=== PATIENT | female | born 1980 | race Caucasian/White ===

== ENCOUNTER 2018-11-19 00:43 | Inpatient (IN) ==
[2018-11-19 01:28] LABS: Basophils % 0.3 %; Eosinophils # 0.1 K/mcL (0.0-0.6); Eosinophils % 0.9 %; Hematocrit 43.4 % (35.3-44.9); Hemoglobin 14.7 g/dL (11.5-15.4); Immature Granulocytes % 0.4 % (0-4); Lymphocytes # 3.3 K/mcL (0.6-4.6); Mean Corpuscular HGB Conc 33.9 g/dL (31.6-35.5); Mean Corpuscular Hemoglobin 31.4 pg (28.0-33.3); Mean Corpuscular Volume 92.7 fL (83.0-100.0); Mean Platelet Volume 9.2 fL (9.4-12.4); Monocytes # 0.9 K/mcL (0.0-1.3); Monocytes % 7.4 %; Neutrophils # 7.4 K/mcL (1.6-8.9); Platelet Count 248 K/mcL (140-400); Red Blood Count 4.68 M/mcL (3.82-4.97); White Blood Count 11.8 K/mcL (4.3-11.1)
[2018-11-19 01:47] LABS: Acetaminophen < 10 mcg/mL (10-20); BUN/Creatinine Ratio 25 (6-26); Blood Urea Nitrogen 24 mg/dL (6-20); Calcium 9.5 mg/dL (8.6-10.3); Carbon Dioxide 28 mEq/L (23-29); Chloride 106 mEq/L (98-107); Ethanol < 10 mg/dL (Less than 10); Glucose 97 mg/dL (70-105); Osmolality,Calculated 292 (280-300); Potassium 3.9 mEq/L (3.5-5.1); Salicylate < 2.5 mg/dL (15.0-30.0); Sodium 139 mEq/L (136-145); eGFR For African Americans > 60 (> 60); eGFR For Non-African Americans > 60 (> 60)
[2018-11-19 02:22] LABS: Bilirubin,Urine Large (Negative); Blood,Urine Negative (Negative); Clarity,Urine Clear (Clear); Color,Urine Yellow (Yellow); Glucose,Urine (UA) Normal (Normal); Ketones,Urine Negative (Negative); Leukocyte Esterase,Urine Negative (Negative); Nitrite,Urine Negative (Negative); PH,Urine 5.5 pH Units (5.0-8.0); Protein,Urine Negative (Neg-Trace); Specific Gravity,Urine > 1.030 (1.010-1.025); Urobilinogen,Urine Normal (Normal)
[2018-11-19 02:42] LABS: Amphetamine Screen,Urine Negative ng/mL (Cutoff=1000); Barbiturate Screen,Urine Negative ng/mL (Cutoff=200); Benzodiazepines Screen,Urine Positive ng/mL (Cutoff=200); Cannabinoid Screen,Urine Positive ng/mL (Cutoff = 50); Cocaine Screen,Urine Negative ng/mL (Cutoff= 300); Opiate Screen,Urine Negative ng/mL (Cutoff=300); Phencyclidine Screen,Urine Negative ng/mL (Cutoff=25)
--- NOTE | 2018-11-19 02:43 | Emergency Department Note ---
Disposition Clinical Impression: Suicidal ideation, Depression Disposition: Still a Patient Condition: Fair Referrals: NONE,PCP [Primary Care Provider] - Time of Disposition: 02:45 General Adult HPI - General Chief complaint: ED Psychiatric Symptoms Stated complaint: Really depressed, my anxiety is really bad Time Seen by Provider: 11/19/18 01:13 Source: patient Mode of arrival: ambulatory Limitations: no limitations Nursing Notes Reviewed: Yes Vital Signs Reviewed: Yes - History of Present Illness HPI Narrative: Patient presents emergency Department with chief complaint of several months of progressive problems with increasing depression and anxiety. She has been to her primary care and to her outpatient psychiatrist but she states that they are not really helping her they did add Risperdal to help her sleep at night and ingested her Lexapro little bit states is not helping and she has just progressive worsening of just not wanting to be alive. She states that she just "wants to check out". She does not have a specific plan of how to kill herself but states that she just does not want to be here anymore. She denies any visual or auditory hallucinations. She denies homicidal ideation. She denies fevers chills headache neck pain chest pain shortness of breath dizziness weakness nausea vomiting diarrhea urinary changes. She states that she does not sleep very well at all but never really has not has had a problem with insomnia for a long time. She states she has not been eating or drinking very well and does not really find anything that brings her chel in life. Patient denies any missed menstrual cycles. Patient denies any other acute concerns. Pain Scale: 6 - Related Data Home Medications Medication Instructions Recorded Confirmed Aspirin 81 mg PO DAILY 06/15/15 11/19/18 Escitalopram [Lexapro] 20 mg PO HS 06/15/15 11/19/18 Levothyroxine 100 mcg PO DAILY 07/23/15 11/19/18 Allergies Allergy/AdvReac Type Severity Reaction Status Date / Time Antihistamines - Ethanolamine AdvReac See Verified 11/19/18 01:36 Comments All systems ED: reviewed and negative except as stated. Review of Systems: As Per HPI Past Medical History - Past Medical History Medical history: Reports: GERD, GI bleed, hypertension, migraine, SVT, thyroid disease, syncope, valvular heart disease Psychiatric history: Reports: anxiety, depression, panic disorder, PTSD, prior suicide attempt - Social History Smoking Status: Former smoker Smokeless Tobacco Status: No Alcohol use: Reports: none, rarely Drug use: Reports: none Physical Exam - General Limitations: no limitations General appearance: alert, anxious - Head Head exam: atraumatic, normocephalic - Eye Eye exam: Present: normal appearance, PERRL - ENT ENT exam: normal exam, normal oropharynx - Neck Neck exam: Present: normal inspection, full ROM - Chest Chest inspection: Present: normal inspection, symmetric chest wall rise - Respiratory Respiratory exam: Present: normal lung sounds bilaterally - Cardiovascular Cardiovascular exam: Present: regular rate, normal rhythm - Abdominal Exam Abdominal exam: Present: soft, Non-Tender - Extremities Exam Extremities exam: Present: normal inspection, full ROM - Expanded Lower Extremity Exam Neurovascular/Tendon exam: Present: normal capillary refill. Absent: pulse deficit, motor deficit, sensory deficit - Back Exam Back exam: Present: normal inspection, full ROM - Neurological Exam Neurological exam: Present: alert, oriented X3, CN II-XII intact, normal gait, reflexes normal. Absent: motor sensory deficit - Psychiatric Psychiatric exam: Present: depressed, flat affect - Skin Skin exam: Present: warm, dry, intact, normal color Course Vital Signs Temperature 98.2 F 11/19/18 00:48 Pulse Rate 90 11/19/18 00:48 Respiratory Rate 14 11/19/18 00:48 Blood Pressure 117/81 11/19/18 00:48 O2 Sat by Pulse Oximetry 98 11/19/18 00:48 Temperature 98.2 F 11/19/18 00:48 Pulse Rate 90 11/19/18 00:48 Respiratory Rate 14 11/19/18 00:48 Blood Pressure 117/81 11/19/18 00:48 O2 Sat by Pulse Oximetry 98 11/19/18 00:48 Oxygen Delivery Oxygen Delivery Room Air Medical Decision Making - MDM Narrative Medical decision making narrative: Laboratory studies were ordered for medical clearance, CBC basic metabolic profile within acceptable limits urinalysis within acceptable limits test negative salicylate Tylenol ethanol levels all negative. Patient cleared for psychiatric admission/evaluation. - Lab Data Lab results reviewed: Yes I reviewed the patient's lab results. Result diagrams: 11/19/18 01:15 11/19/18 01:15 Lab Results 11/19/18 11/19/18 11/19/18 Range/Units 01:15 01:15 01:26 WBC 11.8 H (4.3-11.1) K/mcL RBC 4.68 (3.82-4.97) M/mcL Hgb 14.7 (11.5-15.4) g/dL Hct 43.4 (35.3-44.9) % MCV 92.7 (83.0-100.0) fL MCH 31.4 (28.0-33.3) pg MCHC 33.9 (31.6-35.5) g/dL RDW 12.0 (11.5-14.5) % Plt Count 248 (140-400) K/mcL MPV 9.2 L (9.4-12.4) fL Immature Gran % 0.4 (0-4) % Seg Neutrophils % 63.0 % Lymphocytes % 28.0 % Monocytes % 7.4 % Eosinophils % 0.9 % Basophils % 0.3 % Neutrophils # 7.4 (1.6-8.9) K/mcL Lymphocytes # 3.3 (0.6-4.6) K/mcL Monocytes # 0.9 (0.0-1.3) K/mcL Eosinophils # 0.1 (0.0-0.6) K/mcL Basophils # 0.0 (0.0-0.2) K/mcL Sodium 139 (136-145) mEq/L Potassium 3.9 (3.5-5.1) mEq/L Chloride 106 (98-107) mEq/L Carbon Dioxide 28 (23-29) mEq/L BUN 24 H (6-20) mg/dL Creatinine 0.96 (0.60-1.20) mg/dL Est GFR ( Amer) > 60 (> 60) Est GFR (Non-Af Amer) > 60 (> 60) BUN/Creatinine Ratio 25 (6-26) Glucose 97 (70-105) mg/dL Calculated Osmolality 292 (280-300) Calcium 9.5 (8.6-10.3) mg/dL Urine Color (Yellow) Urine Clarity (Clear) Urine pH (5.0-8.0) pH Units Ur Specific [place] (1.010-1.025) Urine Protein (Neg-Trace) mg/dL Urine Glucose (UA) (Normal) mg/dL Urine Ketones (Negative) mg/dL Urine Blood (Negative) Urine Nitrite (Negative) Urine Bilirubin (Negative) Urine Urobilinogen (Normal) mg/dL Ur Leukocyte Esterase (Negative) Urine Test (Negative) Salicylates < 2.5 L (15.0-30.0) mg/dL Acetaminophen < 10 L (10-20) mcg/mL Ur Drug Screen Interp See Below Ethyl Alcohol < 10 (Less than 10) mg/dL 11/19/18 11/19/18 Range/Units 01:28 01:28 WBC (4.3-11.1) K/mcL RBC (3.82-4.97) M/mcL Hgb (11.5-15.4) g/dL Hct (35.3-44.9) % MCV (83.0-100.0) fL MCH (28.0-33.3) pg MCHC (31.6-35.5) g/dL RDW (11.5-14.5) % Plt Count (140-400) K/mcL MPV (9.4-12.4) fL Immature Gran % (0-4) % Seg Neutrophils % % Lymphocytes % % Monocytes % % Eosinophils % % Basophils % % Neutrophils # (1.6-8.9) K/mcL Lymphocytes # (0.6-4.6) K/mcL Monocytes # (0.0-1.3) K/mcL Eosinophils # (0.0-0.6) K/mcL Basophils # (0.0-0.2) K/mcL Sodium (136-145) mEq/L Potassium (3.5-5.1) mEq/L Chloride (98-107) mEq/L Carbon Dioxide (23-29) mEq/L BUN (6-20) mg/dL Creatinine (0.60-1.20) mg/dL Est GFR ( Amer) (> 60) Est GFR (Non-Af Amer) (> 60) BUN/Creatinine Ratio (6-26) Glucose (70-105) mg/dL Calculated Osmolality (280-300) Calcium (8.6-10.3) mg/dL Urine Color Yellow (Yellow) Urine Clarity Clear (Clear) Urine pH 5.5 (5.0-8.0) pH Units Ur Specific [place] > 1.030 H (1.010-1.025) Urine Protein Negative (Neg-Trace) mg/dL Urine Glucose (UA) Normal (Normal) mg/dL Urine Ketones Negative (Negative) mg/dL Urine Blood Negative (Negative) Urine Nitrite Negative (Negative) Urine Bilirubin Large H (Negative) Urine Urobilinogen Normal (Normal) mg/dL Ur Leukocyte Esterase Negative (Negative) Urine Test Negative (Negative) Salicylates (15.0-30.0) mg/dL Acetaminophen (10-20) mcg/mL Ur Drug Screen Interp Ethyl Alcohol (Less than 10) mg/dL
[2018-11-19] MEDS ORDERED: *HR* LORazepam 2 MG/ML VIAL IM PRN (04:27)
[2018-11-19] MEDS ORDERED: hydrOXYzine pamoate 25 MG CAPSULE PO PRN (04:27)
[2018-11-19] MEDS ORDERED: *HR* LORazepam 1 MG TABLET PO PRN (04:27)
[2018-11-19] MEDS ORDERED: Acetaminophen 325 MG TABLET PO PRN (04:27)
[2018-11-19] MEDS ORDERED: Mag Hydrox/Al Hydrox/Simeth 30 ML UDC PO PRN (04:27)
[2018-11-19] MEDS ORDERED: MOM Conc 10 ML UD.LIQ PO PRN (04:27)
[2018-11-19] MEDS ORDERED: Haloperidol Lactate 5 MG/ML VIAL IM PRN (04:27)
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
[2018-11-19] MEDS: Acetaminophen 325 MG TABLET PO PRN ×2 (11:37→21:08)
[2018-11-19] MEDS: diazePAM 5 MG TABLET PO PRN ×2 (11:38→21:13)
[2018-11-19] MEDS: Aspirin Enteric Coated 81 MG Tablet PO SCH (11:39)
[2018-11-19] MEDS: tiZANidine 4 MG TABLET PO PRN (17:05)
[2018-11-19] MEDS ORDERED: Diclofenac Sodium (24 HR) 100 MG TABLET PO SCH (21:00)
[2018-11-19] MEDS: traZODone 50 MG TABLET PO PRN (21:10)
[2018-11-19] MEDS: Gabapentin 300 MG CAPSULE PO SCH (21:10)
[2018-11-19] MEDS: Diclofenac Sodium (24 HR) 100 MG TABLET PO SCH (21:53)
[2018-11-20] MEDS ORDERED: LEVOTHYROXINE 100 MCG PO SCH (06:30)
[2018-11-20] MEDS: Gabapentin 300 MG CAPSULE PO SCH ×3 (08:56→21:32)
[2018-11-20] MEDS: Diclofenac Sodium (24 HR) 100 MG TABLET PO SCH (08:56)
[2018-11-20] MEDS: Aspirin Enteric Coated 81 MG Tablet PO SCH (08:56)
[2018-11-20] MEDS: Fluticasone Propionate Nasal 50 MCG/SPRAY BOTTLE NS SCH (08:58)
[2018-11-20] MEDS: diazePAM 5 MG TABLET PO PRN ×2 (11:46→21:32)
--- NOTE | 2018-11-20 11:50 | Psychiatry Progress Note ---
Date of Encounter: 11/20/18 Time of Encounter: 11:46 Subjective Interval history: Client continues to feel depressed and anxious. However, SI seems to have lessened. More future orientation. However, she is very negative about most things in her life. Likely some personality issues in addition to her depression. Also seems to be in physical pain today. Moving slowly. Client states her meds were not verified until late yesterday so her pain got out of control quickly. Sleeping on the hospital mattress likely did not help any. States she slept off and on last night. Appetite still poor. Started Cymbalta this morning. Seems to be tolerating it fine. Will plan to increase dose for tomorrow morning. Review of Systems Constitutional: Reports: weakness Eyes: Denies: eye pain, vision change Ears, Nose, Throat: Denies: ear pain, throat pain, dental pain, hearing loss, congestion Cardiovascular: Denies: chest pain, palpitations, dyspnea on exertion Respiratory: Denies: cough, dyspnea, wheezes Gastrointestinal: Reports: nausea Musculoskeletal: Reports: back pain Neurological: Reports: other Results - Vital Signs Vital Signs: Temp Pulse Resp BP Pulse Ox 97.3 F L 100 16 114/58 98 11/20/18 09:00 11/20/18 09:00 11/20/18 09:00 11/20/18 09:00 11/20/18 09:00 Assessment and Plan (1) Major depress dis, severe Current visit: Yes Status: Acute Risks, benefits, side effects, alternatives discussed w/pt: Yes Patient agreeable to treatment: Yes (2) Post traumatic stress disorder Current visit: Yes Status: Acute Risks, benefits, side effects, alternatives discussed w/pt: Yes Patient agreeable to treatment: Yes Consult Discharge Plan - Plan Referrals: NONE,PCP [Primary Care Provider] - Psychiatry Exam - Constitutional Vitals: Temp Pulse Resp BP Pulse Ox 97.3 F L 100 16 114/58 98 11/20/18 09:00 11/20/18 09:00 11/20/18 09:00 11/20/18 09:00 11/20/18 09:00 General appearance: age & developmentally appropriate, well-groomed, well- nourished - Musculoskeletal Gait: slow Station: relaxed Strength & Tone: normal for patient - Psychiatric Patient Orientation: Yes Person, Yes Time, Yes Place Level of alertness: Alert Behavior: calm, cooperative Psychomotor activity: Normal Eye Contact: Maintains Eye Contact Mood Description: Depressed, Anxious Affect description: congruent with mood Speech Volume: Normal Speech pattern: normal rate, normal rhythm, normal tone, fluent, spontaneous Language & Vocabulary: consistent with education Thought Process: Linear, Goal Oriented Thought Content: Yes Suicidal ideation, No Homicidal ideation, No Overt delusions Perceptual Disturbances: No Auditory hallucinations, No Visual hallucinations Attention Span Ability: Capable of Focused Attention Memory Description: Grossly Intact Patient Reliability: Reliable Historian Fund of knowledge: Yes abstraction ability Intelligence Estimate: Average Judgment: Fair Insight: Partial
[2018-11-20] MEDS: Acetaminophen 325 MG TABLET PO PRN ×2 (15:14→21:33)
[2018-11-20] MEDS: traZODone 50 MG TABLET PO PRN (21:32)
[2018-11-20] MEDS: tiZANidine 4 MG TABLET PO PRN (21:32)
[2018-11-21] MEDS: tiZANidine 4 MG TABLET PO PRN (09:11)
[2018-11-21] MEDS: Gabapentin 300 MG CAPSULE PO SCH (09:11)
[2018-11-21] MEDS: Aspirin Enteric Coated 81 MG Tablet PO SCH (09:11)
[2018-11-21] MEDS: Acetaminophen 325 MG TABLET PO PRN (09:11)
[2018-11-21] MEDS: Diclofenac Sodium (24 HR) 100 MG TABLET PO SCH (09:11)
[2018-11-21] MEDS: Fluticasone Propionate Nasal 50 MCG/SPRAY BOTTLE NS SCH (09:13)
[2018-11-21 09:34] VITALS: BP 115/79
--- NOTE | 2018-11-21 10:37 | Discharge Summary ---
Date of Encounter: 11/21/18 Time of Encounter: 10:33 Diagnosis - Discharge Diagnosis (1) Major depress dis, severe Status: Acute (2) Post traumatic stress disorder Status: Acute Medications - Discharge Medications Prescriptions: DULoxetine [Cymbalta] 30 mg PO DAILY #30 capsule. Amitriptyline [Elavil] 25 mg PO HS 11/19/18 [History] Levothyroxine Sodium 100 mcg PO QAM 11/19/18 [History] Montelukast [Singulair] 10 mg PO DAILY 11/19/18 [History] Spironolactone 200 mg PO DAILY 11/19/18 [History] Tizanidine HCl 4 mg PO Q8H PRN 11/19/18 [History] diazePAM [Valium] 5 mg PO Q6-8H PRN 11/19/18 [History] Aspirin Enteric Coated [Aspirin EC] 81 mg PO DAILY tablet. 11/21/18 [Rx] DULoxetine [Cymbalta] 30 mg PO DAILY #30 capsule. 11/21/18 [Rx] Diclofenac Sodium (24 HR) [Voltaren XR] 100 mg PO DAILY tab.er.24h 11/21/18 [Rx] Gabapentin [Neurontin] 300 mg PO TID capsule 11/21/18 [Rx] Allergy/AdvReac Type Severity Reaction Status Date / Time Antihistamines - Ethanolamine AdvReac See Verified 11/19/18 01:36 Comments Results Procedures and tests throughout hospitalization: Completed Lab Orders Category Date Time Status Acetaminophen Stat Lab 11/19/18 01:15 Completed Basic Metabolic Panel Stat Lab 11/19/18 01:15 Completed Complete Blood Count [HEME] Stat Lab 11/19/18 01:15 Completed Drug Screen, Urine [UCHEM] Stat Lab 11/19/18 01:26 Completed Ethanol Stat Lab 11/19/18 01:15 Completed Test Result, Urine [URIN] Stat Lab 11/19/18 01:28 Completed Salicylate Stat Lab 11/19/18 01:15 Completed Urinalysis reflex Microscopic [URIN] Stat Lab 11/19/18 01:28 Completed Provider Date of admission: 11/19/18 04:09 Primary care physician: PCP NONE Discharging clinician: Danae Sánchez Psychiatry Exam - Constitutional Vitals: Temp Pulse Resp BP Pulse Ox 98 F 72 18 115/79 98 11/21/18 09:00 11/21/18 09:00 11/21/18 09:00 11/21/18 09:00 11/21/18 09:00 General appearance: age & developmentally appropriate, well-groomed, well- nourished - Musculoskeletal Gait: normal Station: relaxed Strength & Tone: normal for patient - Psychiatric Patient Orientation: Yes Person, Yes Time, Yes Place Level of alertness: Alert Behavior: calm, cooperative Psychomotor activity: Normal Eye Contact: Maintains Eye Contact Mood Description: Euthymic/stable Affect description: congruent with mood, full range Speech Volume: Normal Speech pattern: normal rate, normal rhythm, normal tone, fluent, spontaneous Language & Vocabulary: consistent with education Thought Process: Linear, Goal Oriented Thought Content: No Suicidal ideation, No Homicidal ideation, No Overt delusions Perceptual Disturbances: No Auditory hallucinations, No Visual hallucinations Attention Span Ability: Capable of Focused Attention Memory Description: Grossly Intact Patient Reliability: Reliable Historian Fund of knowledge: Yes abstraction ability, Yes aware of current events Intelligence Estimate: Average Judgment: Fair Insight: Partial Hospital Course Hospital course: Ms. Vences is a 38 year old female who was admitted for SI. Client had been taking Lexapro and Valium at home and had been on the same combination for years. Client initially reported clinical benefit from this combination but states she has not had good control of her depression and anxiety for several months now. Her Lexapro was discontinued in favor of Cymbalta with positive results. Client seemed to respond well to the norepinephrine component of the medication and it will hopefully help with her chronic pain issues as well. 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 On the unit client was calm and cooperative. She attended groups and participated in treatment. She reports getting decent sleep and she feels this helped her as well. Client is currently linked with a therapist that she trusts. She has a prescriber but is waiting to be established at [facility] for medication management. She missed her intake appointment there due to being in the hospital and staff will set her up with a new appointment before she leaves today. Client has more affect today. She reports feeling better. "More up." Future oriented. Denying any further SI, intent, or plan. States she would return to the hospital for help is she ever felt like she could hurt herself again. Denies HI/AH/VH and feels ready to go home. Total time spent with client greater than 30 minutes. Patient was educated of her diagnosis and the risks, benefits, and side effects of this treatment and alternative treatment options and was monitored for responsiveness and side effects. Mood, anxiety, sleep, appetite, and interest improved, as did future orientation. Self-harm thoughts subsided, thinking cleared, psychosis resolved, and mood stabilized. Patient was able to attend both individual and group therapy sessions as well as meeting with the psychiatrist daily and urged to discuss any medication or treatment issues or other concerns. The patient was educated primarily by verbal means about their diagnosis and manifestations in their life. The option for treatment including group and individual therapy programming was offered to the patient in the use of medications with all their potential risks, benefits, and side effects were discussed with the patient at length. The patient was given the opportunity to ask questions and was noted to participate in the treatment in the planning process. The patient felt ready and eager to be discharged from the inpatient psychiatric unit to continue on with treatment as an outpatient. The patient agreed that she is safe for this disposition. The patient was considered to be able to participate in informed consent and decision making with respect to medical, legal, and financial issues of the time of discharge. At the time of discharge the patient adamantly denied any concerns for lethality including suicidal or homicidal thoughts ideations or plans and was future oriented toward ongoing mental health care, medical follow-up and sobriety. - Time Spent with Patient Total time spent providing and/or coordinating discharge services: Greater than 30 minutes Assessment and Plan - Patient/Caregiver Discharge Instructions Activity: resume usual activities as tolerated Diet: regular diet - Follow up Plan Follow up with: NONE,PCP [Primary Care Provider] - Functional capacity at discharge: independent ambulation Overall status at discharge: Stable Disposition: Home, Self-Care Quality - Multiple Antipsychotics Patient discharged on 2 or more antipsychotic medications: No Procedures - Procedures Procedures: Medication Management, Crisis Stabilization, Supportive Therapy, Group Therapy
[2018-11-21] MEDS: diazePAM 5 MG TABLET PO PRN (12:24)
== END 2018-11-21 13:25 | disposition home or self-care (01) | DRG 751 ==
LOC: EMEROOARM 00:43 → 1ANU 04:09
PROVIDERS: ADMIT Psychiatry & Neurology Psychiatry; ATTEND Psychiatry & Neurology Psychiatry